=== PATIENT | female | born 1985 | race Caucasian/White ===

== ENCOUNTER 2017-03-25 19:24 | Emergency (ER) | payer OTHER ==
[~2017-03-25] VITALS: Ht 170.2 cm; Wt 73.7 kg
[~2017-03-25 19:24] MED LIST: DULO20CA45 PO
[2017-03-25] MEDS ORDERED: SODIUM CHLORIDE FLUSH 10ML SYR IVF ONE (20:00)
[2017-03-25] MEDS ORDERED: MORPHINE SULFATE 4 MG/ML, 1ML IVPush PRN (20:00)
[2017-03-25] MEDS ORDERED: SODIUM CHLORIDE 0.9% 1,000ML IVBOLUS ONE (20:00)
[2017-03-25] MEDS ORDERED: ONDANSETRON 2MG/ML, 2ML IVPush ONE (20:00)
[2017-03-25 20:37] LABS: BLOOD UREA NITROGEN 13 mg/dL (7-18)
[2017-03-25] MEDS ORDERED: DICYCLOMINE 10 MG/ML, 2ML IM ONE (21:30)
[2017-03-25] MEDS ORDERED: MORPHINE SULFATE 4 MG/ML, 1ML ONE (22:04)
[2017-03-25] MEDS ORDERED: ONDANSETRON 2MG/ML, 2ML ONE ×2 (22:04→23:41)
[2017-03-25 23:44] VITALS: BP 130/97
[2017-03-26] MEDS ORDERED: ONDANSETRON 2MG/ML, 2ML IVPush ONE
== END 2017-03-26 00:49 | disposition home or self-care (01) ==
LOC: ED 23:18
DX: R11.2 Nausea with vomiting, unspecified (principal); R10.84 Generalized abdominal pain; R51 Headache; Z98.51 Tubal ligation status
CPT/HCPCS: 36415; 80048; 82040; 85025; 96361; 96372; 96374; 96375; 96376; 99284; J0500; J2405; J7030